=== PATIENT | female | born 1945 | race Caucasian/White ===

== ENCOUNTER 2017-03-12 09:41 | Day surgery (SDC) | payer MEDICARE, OTHER ==
[~2017-03-12] VITALS: Ht 160 cm; Wt 57.9 kg
[2017-03-12] VITALS (8 sets, daily range): BP systolic 153–205; BP diastolic 68–79; PULSE 64–76; RESP 16–22; TEMP 97.2–98.1; O2SAT 94–99; Ht 160 cm; Wt 57.9 kg
[~2017-03-12 09:41] MED LIST: AMLO5TAB2 PO; ASPI-557 PO; ATOR40TA64 PO; CHRO1000 PO; FLAX340P PO; LOSA100T44 PO; MULT-933 PO; OMEP40CA52 PO; VITA100049 PO; [UNRECOGNIZED DRUG - CODE] PO; [UNRECOGNIZED DRUG - CODE] PO
--- OUTSIDE RECORDS SUMMARY | 2017-03-12 09:45 | XMS REPORT | Continuity of Care Document ---
Author Author [facility] Organization [facility] Address Unknown Phone Unavailable Allergies Medications Problems Procedures Results Encounters ACCT No. Visit Date/Time Discharge Status Pt. Type Provider Facility Loc./Unit Complaint [id number] 11/25/2013 12:28:00 2013 12:28:00 DIS Outpatient Leonid SINGH, Kodi Le [facility]
--- NOTE | 2017-03-12 11:00 | NUR ---
CARDIOLOGY DURING ADMISSION, PT REPORTS SHE SEES DR ROMANO/CARDIOLOGY ANNUALLY FOR HX OF ANGINA. PT REPORTS NEGATIVE HEART CATH 2 YEARS AGO, AND DENIES ANY ANGINA SINCE THE EXAM. REPORTS HAD NUCLEAR STRESS TEST 01/[address] ROMANO LAST WEEK, 02/2017 FOR EXAM. PT REPORTS EXAM FINDINGS NEGATIVE. Agnieszka ANTHONY CRNA NOTIFIED, AND PER GABRIELLE, CONTACTED DR ROMANO'S OFFICE AND REQUEST COPIES OF EXAM FINDINGS.
--- NOTE | 2017-03-12 11:40 | NUR ---
STATUS Agnieszka ANTHONY [employer] SPEAKS WITH PT AND REVIEWS CARDIOLOGY RESULTS FROM DR. ROMANO'S OFFICE. PER Agnieszka ANTHONY CRNA, OK TO PROCEED WITH ADMISSION AND SURGERY. ALL QUESTIONS ANSWERED AND PT VERBALIZED DESIRE TO PROCEED.
[2017-03-12] MEDS: PHENYLEPHRINE 2.5% EYE DROPS 5ml RIGHT EYE SCH ×3 (11:42→11:58)
[2017-03-12] MEDS: CYCLOPENTOLATE 2% EYE DROPS 2ml RIGHT EYE SCH ×3 (11:42→11:58)
[2017-03-12] MEDS: NEPAFENAC 0.1% EYE DROPS 3ml RIGHT EYE SCH ×3 (11:42→11:59)
[2017-03-12] MEDS: TROPICAMIDE 1% EYE DROPS 3ml RIGHT EYE SCH ×3 (11:42→11:59)
[2017-03-12] MEDS: PROPARACAINE 0.5% EYE DROPS 15ml RIGHT EYE SCH ×3 (11:42→11:59)
[2017-03-12] MEDS: MOXIFLOXACIN 0.5% EYE DROPS 3ml RIGHT EYE SCH ×3 (11:42→11:58)
--- NOTE | 2017-03-12 11:57 | ANESPREOP ---
Anesthesia Record Date and Time DATE: 03/12/17 TIME: 11:55 Pre-Op Diagnosis cataract right eye Proposed Surgical Procedure PE W IOL OD NPO since: 0700 Allergies: Coded Allergies: Latex, Natural Rubber (Verified Allergy, Mild, RASH, 03/12/17) PT REPORTS HAD A SERUM TEST TO CONFIRM WELL Sulfa (Sulfonamide Antibiotics) (Verified Adverse Reaction, Unknown, SLEP FOR SEVERAL DAYS, 03/11/17) GIVEN CHILD- MOTHER TOLD PATIENT SHE SLEPT FOR SEVERAL DAYS ether (Verified Adverse Reaction, Unknown, SLEPT FOR SEVERAL DAYS, 03/11/17 ) PATIENT STATES CHILD AND THAT THEY ALSO GAVE HER SULFA - SHE WS TOLD SHE SLEP FOR SEVERAL DAYS Ht/Wt/BMI Height: 5 ' 3.00 " Weight: 57.900 kg BMI: 22.6 kg/m2 Vital Signs Date Time Temp Pulse Resp B/P Pulse Ox O2 Delivery O2 Flow Rate FiO2 03/12/17 10:45 98.1 67 16 205/79 99 Room Air Medications Inpatient Medications Current Medications Medications (Trade) Dose Ordered Sig/Willy Start Time Stop Time Status Last Admin Dose Admin Cyclopentolate HCl (Cyclogyl 2%) 1 drop Q5M 03/12/17 16:00 03/12/17 16:11 03/12/17 11:50 1 DROP Tropicamide (Mydriacyl 1% Eye Drops) 1 drop Q5M 03/12/17 16:00 03/12/17 16:11 03/12/17 11:50 1 DROP Proparacaine HCl (Alcaine 0.5% Eye Drops) 1 drop Q5M 03/12/17 16:00 03/12/17 16:11 03/12/17 11:50 1 DROP Phenylephrine HCl (Doyle-Synephrine 2.5% Eye Drops) 1 drop Q5M 03/12/17 16:00 03/12/17 16:11 03/12/17 11:50 1 DROP Moxifloxacin HCl (Vigamox) 1 drop Q5M 03/12/17 16:00 03/12/17 16:11 03/12/17 11:50 1 DROP Nepafenac (Nevanac 0.1% Eye Drops) 1 drop Q5M 03/12/17 16:00 03/12/17 16:11 03/12/17 11:50 1 DROP Amlodipine Besylate (Amlodipine Besylate) 5 Mg Tablet, 1 TAB PO DAILY, (Reported ) Last Taken: on 03/11/17 Ascorbic Acid (Vitamin C) 1,000 Mg Tab.chew, 2 TAB PO DAILY, (Reported) Last Taken: on 03/11/17 Aspirin (Aspir 81) 81 Mg Tablet.dr, 1 TAB PO DAILY, (Reported) Last Taken: on 03/10/17 Atorvastatin Calcium (Atorvastatin Calcium) 40 Mg Tablet, 1 TAB PO HS, (Reported) Last Taken: on 03/11/17 Calcium Phosphate Trib/Vit D3 (Calcium + Vitamin D3 Gummies) 1 Each Tab.chew, 2 TAB PO DAILY, (Reported) Last Taken: on 03/11/17 Chromium Picolinate (Chromium Picolinate) 1,000 Mcg Tablet, 1 TAB PO DAILY, (Reported) Last Taken: on 03/09/17 Flaxseed (Flaxseed) 340 Gm Powder, 3 TBS PO DAILY, (Reported) Last Taken: on 03/09/17 Losartan Potassium (Losartan Potassium) 100 Mg Tablet, 1 TAB PO DAILY, (Reported) Last Taken: on 03/12/17 0515 Multivitamin (Multi-Day Vitamins) 1 Each Tablet , 2 TAB PO DAILY, (Reported) Last Taken: on 03/11/17 Omeprazole (Omeprazole) 40 Mg Capsule.dr, 1 CAP PO DAILY, (Reported) Last Taken: on 03/12/17 0515 Vitamin E Mixed (Vitamin E) 1,000 Unit Capsule , 1 CAP PO DAILY, (Reported) Last Taken: on 03/09/17 Currently on Beta Darwin: No Medical/Surgical History Anesthesia PMH: Reports: *Angina (HX OF, LAST EPISODE 2 YEARS AGO-SEE NOTES), * Hypertension, Cancer (R BREAST,SKIN CA), Cardiac Arrythmia, Reflux, Denies: * Diabetes, Anesthesia Reactions (NO AIRWAY ISSUES-ALLERGY TO EITHER-N&V), Arthritis, Clotting Problems, Glaucoma, Malignant Hyperthermia, Renal Disease, Thyroid Disease Smoking Status: Never smoker Has pt. smoked today?: No Use Chewing Tobacco?: No Second Hand Exposure: No Substance Use Type: does not use Alcohol Intake: none HX of Last Menstrual Period: 1985 Past Surgical History Orthopedic Surgeries: Yes - L KNEE SCOPE Abdominal Surgeries: Genitourinary Surgeries: Cardiac Surgeries: Yes - HEART CATH SPRING 2014 Endocrine Surgeries: Reproductive Surgeries: Yes - HYSTERECTOMY, BSO Neurological Surgeries: Ear Surgeries: Nose Surgeries: Throat Surgeries: Other Surgeries: Yes - BILAT MASTECTOMY,COLONOSCOPY Anesthesia Adverse Reactions: FOUND none Hx of Motion Sickness: No Pertinent Findings EKG Rhythm: Sinus Rhythm, Bundle Branch Block Physical Exam Respiratory: Lungs clear Cardiovascular: FOUND Regular rate, rhythm, FOUND No murmur Airway Assessment Mallampati Score: I TMD: 3 Fingerbreadths Neck Extension: Good Teeth: Chipped Teeth/Crowns Overall Assessment: No Airway Concerns ASA: 3 Plan Anesthesia Plan: MAC Discussion Discussed risks/options/alternatives of anesthesia and questions answered. Patient consents. Nursing pain assessment noted. Attestation Statement Prior to the delivery of any anesthetic medication, I examined the patient, developed the plan, obtained the patient's consent and discussed the risk and benefits of the procedure with the patient/guardian. RAFAELA ANTHONY CRNA Mar 12, 2017 11:57
[2017-03-12] MEDS: LABETALOL 100mg/20ml INJECTION IV PRN ×3 (12:04→12:19)
--- NOTE | 2017-03-12 12:28 | NUR ---
MEDICATION PER Nehemias SAUNDERS CRNA, WILL NOT ADMINISTER ADDITIONAL LABETALOL IV AT THIS TIME. BP 167/71, HR 64.
--- NOTE | 2017-03-12 12:40 | NUR ---
BELONGINGS PT BELONGINGS, INCLUDING GLASSES, TO FRIEND NALDO.
[2017-03-12] MEDS ORDERED: MIDAZOLAM 2mg/2ml INJECTION ONE (12:56)
[2017-03-12] MEDS ORDERED: SALINE FLUSH 10ml SYRINGE ONE (12:56)
--- NOTE | 2017-03-12 13:51 | ANESPO ---
Post-Op Note Date 03/12/17 Time: 13:50 Status Pt Participated in Evaluation: Pt participated in person Vital Signs Date Time Temp Pulse Resp B/P Pulse Ox O2 Delivery O2 Flow Rate FiO2 03/12/17 12:25 65 16 167/71 99 Room Air 03/12/17 10:45 98.1 Respiratory Function: Airway patent, Regular respirations Cardiovascular Function: Regular pulse Mental Status: Alert/oriented Pain Level Intensity: 0 Hydration: Taking po fluids Complications during Recovery None apparent Follow-Up Instructions Instructions Per Surgeon SOFIA SAUNDERS CRNA Mar 12, 2017 13:50
[2017-03-12] MEDS ORDERED: LIDOCAINE 1% (10mg/ml) 2ml SDV INJ ONE (16:00)
[2017-03-12] MEDS ORDERED: TETRACAINE 0.5% EYE DROPS 4ml BOTTLE RIGHT EYE ONE (16:00)
[2017-03-12] MEDS ORDERED: TETRACAINE 0.5% EYE DROPS 4ml BOTTLE OP ONE (16:41)
[2017-03-12] MEDS ORDERED: BRIMONIDINE 0.2% EYE DROPS 5ml BOTH EYES ONE (16:41)
[2017-03-12] MEDS ORDERED: NS FOR INJ. 20 ML VIAL INJ ONE (16:41)
[2017-03-12] MEDS ORDERED: LIDOCAINE 1% (10mg/ml) 30ml SDV ID ONE (16:41)
[2017-03-12] MEDS ORDERED: VANCOMYCIN 500 MG INJECTION IV ONE (16:41)
--- NOTE | 2017-03-13 11:25 | OPNOTEF ---
DATE OF PROCEDURE 03/12/2017 PREOPERATIVE DIAGNOSIS Cataract, right eye. POSTOPERATIVE DIAGNOSIS Cataract, right eye. PROCEDURE Phacoemulsification with implantation of 19.0 diopter intraocular lens model SA60AT, right eye. ANESTHESIA Topical block monitored by Claudio Otto CRNA. SURGEON Kostas Erickson MD PROCEDURE IN DETAIL The patient came to the [facility] and was escorted to the preanesthesia area where the appropriate monitoring, eyedrops, and topical anesthetic were administered. The patient was then taken into the operating room and the eye was prepped and draped in the standard sterile manner for ophthalmic surgery. A lid speculum was placed between the lids and the eye was irrigated with 5% Povidine iodine solution, followed by copious irrigation with sterile balanced salt solution after three minutes. The eye surgery began with the initial side port incision through the peripheral clear cornea. Lidocaine preservative free 1% was injected into the anterior chamber. Viscoelastic was exchanged for aqueous. A clear cornea incision was made just anterior to the vascular arcade with a steel keratome blade. A continuous curvilinear anterior capsulorrhexis was performed, followed by hydrodissection and hydrodelineation of the cataract. The phacoemulsification tip was then inserted through the incision into the anterior chamber, and the nucleus of the cataract was emulsified. The remaining cortical material was then aspirated and the posterior capsule was cleaned and polished. A posterior chamber intraocular lens was then implanted into the capsular bag with viscoelastic support. The viscoelastic was then removed from the eye by aspiration. The clear cornea incision was inspected to ensure a water tight seal. The lid speculum was removed. Vigamox, Nevanac, and Brimonidine eyedrops were instilled onto the eye and an eye shield was taped over the eye. The patient was dismissed to the responsible libertarian with postoperative instructions and a planned follow-up visit. RYAN
== END 2017-03-12 14:55 | disposition home or self-care (01) ==
LOC: NSC 09:41
PROVIDERS: ATTEND Ophthalmology
DX: H25.813 Combined forms of age-related cataract, bilateral (principal); I10 Essential (primary) hypertension; E78.5 Hyperlipidemia, unspecified; K21.9 Gastro-esophageal reflux disease without esophagitis; E07.9 Disorder of thyroid, unspecified; Z79.82 Long term (current) use of aspirin; Z79.899 Other long term (current) drug therapy
CPT/HCPCS: 66984; A9270; C1780; J2250; J3370

== ENCOUNTER 2017-04-09 10:10 | Day surgery (SDC) | payer MEDICARE, OTHER ==
[~2017-04-09] VITALS: Ht 160 cm; Wt 57.6 kg
--- OUTSIDE RECORDS SUMMARY | 2017-04-09 10:16 | XMS REPORT | Continuity of Care Document ---
Author Author [facility] Organization [facility] Address Unknown Phone Unavailable Allergies Medications Problems Procedures Results Encounters ACCT No. Visit Date/Time Discharge Status Pt. Type Provider Facility Loc./Unit Complaint [id number] 11/25/2013 12:28:00 2013 12:28:00 DIS Outpatient Leonid SINGH, Kodi Le [facility]
--- OUTSIDE RECORDS SUMMARY | 2017-04-09 10:16 | XMS REPORT | Continuity of Care Document ---
Author Author [facility] Organization [facility] Address Unknown Phone Unavailable Support Name Relationship Address Phone PHILIPPE TAI Caregiver [address] [place] [address] [place] [address] Unavailable BIANCA JJ MD Caregiver Unknown Unavailable DAYSI FRANCISCO Next Of Kin Unknown [phone] Insurance Providers Guarantor Sunita Lubin Address [address] [place] [address] Email DENIED 17 Payer [employer] Medicare Supplement Policy Number [id number] Subscriber's Name Sunita Lubin Relationship 18 Self Group Number [id number] Payer Medicare Policy Number [id number] Subscriber's Name TigistSunita Woodruff Relationship 18 Self Advance Directives Directive Response Recorded Date/Time Ordered Resuscitation Status Full Code, unverified 03/11/17 2:44pm Resuscitation Documents on File Y BROUGHT TODAY 03/12/17 11:44am DPOA for Healthcare Only Yes 03/12/17 11:44am Living Will No 03/12/17 11:44am Problems No problem information available. Medications Current Home Medications Medication Dose Units Route Directions Days Qty Instructions Start Date Amlodipine Besylate 5 Mg Tablet 1 Tab Oral Daily 90 03/11/17 Ascorbic Acid (Vitamin C) 1,000 Mg Tab.chew 2 Tab Oral Daily Aspirin (Aspir 81) 81 Mg Tablet. 1 Tab Oral Daily 03/11/17 Atorvastatin Calcium 40 Mg Tablet 1 Tab Oral Bedtime 30 03/11/17 Calcium Phosphate Trib/Vit D3 (Calcium + Vitamin D3 Gummies) 1 Each Tab.chew 2 Tab Oral Daily 03/11/17 Chromium Picolinate 1,000 Mcg Tablet 1 Tab Oral Daily 03/11/17 Flaxseed 340 Gm Powder 3 Tbs Oral Daily 03/11/17 Losartan Potassium 100 Mg Tablet 1 Tab Oral Daily 90 03/11/17 Multivitamin (Multi-Day Vitamins) 1 Each Tablet 2 Tab Oral Daily 30 Tablet 03/11/17 Omeprazole 40 Mg Capsule. 1 Cap Oral Daily 30 03/11/17 Vitamin E Mixed (Vitamin E) 1,000 Unit Capsule 1 Cap Oral Daily 03/11/17 Social History Social History Problem Response Recorded Date/Time Onset Date Status Chewing Tobacco Status No 03/12/2017 11:30am Not Applicable Not Applicable Hx Substance Use No 03/12/2017 11:30am Not Applicable Not Applicable Hx Alcohol Use No 03/12/2017 11:30am Not Applicable Not Applicable Has the pt used tobacco in the last 12 months No 03/12/2017 11:30am Not Applicable Not Applicable Query Response Start Date Stop Date Smoking Status Never smoker Hospital Discharge Instructions No hospital discharge instructions. Plan of Care Discharge Date 03/12/17 2:55pm Prescriptions See Medication Section Functional Status Query Response Date Recorded Ability to complete ADL's impeded by No change March 12, 2017 11:44am Allergies, Adverse Reactions, Alerts Allergen Type Severity Reaction Status Last Updated Sulfa (Sulfonamide Antibiotics) Adverse Reaction Unknown SLEP FOR SEVERAL DAYS Active 03/11/17 Latex Allergy Mild RASH Active 03/12/17 General inhalation anesthetic Adverse Reaction Unknown SLEPT FOR SEVERAL DAYS Active 03/11/17 Immunizations Query Response on File Recorded Date/Time Hx Influenza Vaccination Y JUN 2016 03/12/17 11:30am Hx Pneumococcal Vaccination Y JUN 2016 03/12/17 11:30am Hx Influenza Vaccination Y JUN 2016 03/12/17 11:30am Vital Signs Acute Vital Signs Vital Response Date/Time Temperature (Fahrenheit) 97.2 deg F (96.8 - 99.1) 03/12/2017 2:15pm Temperature (Calculated Celsius) 36.86794 degrees C (36.0 - 37.3) 03/12/2017 2:15pm Temperature Source Temporal 03/12/2017 2:15pm Pulse Rate (adult) 68 bpm (60 - 100) 03/12/2017 2:15pm Respiratory Rate 21 breaths/min (10 - 20) 03/12/2017 2:15pm O2 Sat by Pulse Oximetry 98 % (90 - 100) 03/12/2017 2:15pm Oxygen Delivery Method Room Air 03/12/2017 2:15pm Blood Pressure 169/72 mm Hg 03/12/2017 2:15pm Blood Pressure Source Automatic Cuff 03/12/2017 2:15pm Height (Feet) 5 feet 03/12/2017 10:45am Height (Inches) 3.00 inches 03/12/2017 10:45am Weight (Kilograms) 57.900 kg 03/12/2017 10:45am Body Mass Index (BMI) 22.6 03/12/2017 10:45am Results No known relevant diagnostic tests, laboratory data and/or discharge summary. Procedures Procedure Status Date Provider(s) Cataract extraction, right Completed 03/12/17 BIANCA JJ MD Encounters Encounter Location Arrival/Admit Date Discharge/Depart Date Attending Provider Departed [facility] 03/12/17 9:41am 03/12/17 2: 55pm BIANCA JJ MD
[2017-04-09] MEDS: MOXIFLOXACIN 0.5% EYE DROPS 3ml LEFT EYE SCH ×3 (11:34→11:46)
[2017-04-09] MEDS: CYCLOPENTOLATE 2% EYE DROPS 2ml LEFT EYE SCH ×3 (11:34→11:47)
[2017-04-09] MEDS: NEPAFENAC 0.1% EYE DROPS 3ml LEFT EYE SCH ×3 (11:34→11:47)
[2017-04-09] MEDS: TROPICAMIDE 1% EYE DROPS 3ml LEFT EYE SCH ×3 (11:35→11:47)
[2017-04-09] MEDS: PHENYLEPHRINE 2.5% EYE DROPS 5ml LEFT EYE SCH ×3 (11:35→11:47)
[2017-04-09] MEDS: PROPARACAINE 0.5% EYE DROPS 15ml LEFT EYE SCH ×3 (11:35→11:47)
[2017-04-09 11:57] VITALS: Ht 160 cm; Wt 57.6 kg
--- NOTE | 2017-04-09 12:08 | ANESPREOP ---
Anesthesia Record Date and Time DATE: 04/09/17 TIME: 12:03 Pre-Op Diagnosis lt. cat. Proposed Surgical Procedure CATARACT LEFT Allergies: Coded Allergies: Latex, Natural Rubber (Verified Allergy, Mild, RASH, 03/12/17) PT REPORTS HAD A SERUM TEST TO CONFIRM WELL Sulfa (Sulfonamide Antibiotics) (Verified Adverse Reaction, Unknown, SLEP FOR SEVERAL DAYS, 03/11/17) GIVEN CHILD- MOTHER TOLD PATIENT SHE SLEPT FOR SEVERAL DAYS ether (Verified Adverse Reaction, Unknown, SLEPT FOR SEVERAL DAYS, 03/11/17 ) PATIENT STATES CHILD AND THAT THEY ALSO GAVE HER SULFA - SHE WS TOLD SHE SLEP FOR SEVERAL DAYS Ht/Wt/BMI Height: 5 ' 3.00 " Weight: 57.600 kg BMI: 22.5 kg/m2 Medications Inpatient Medications Current Medications Medications (Trade) Dose Ordered Sig/Willy Start Time Stop Time Status Last Admin Dose Admin Cyclopentolate HCl (Cyclogyl 2%) 1 drop Q5M 04/09/17 17:00 04/09/17 17:11 04/09/17 11:47 1 DROP Tropicamide (Mydriacyl 1% Eye Drops) 1 drop Q5M 04/09/17 17:00 04/09/17 17:11 04/09/17 11:47 1 DROP Proparacaine HCl (Alcaine 0.5% Eye Drops) 1 drop Q5M 04/09/17 17:00 04/09/17 17:11 04/09/17 11:47 1 DROP Phenylephrine HCl (Doyle-Synephrine 2.5% Eye Drops) 1 drop Q5M 04/09/17 17:00 04/09/17 17:11 04/09/17 11:47 1 DROP Moxifloxacin HCl (Vigamox) 1 drop Q5M 04/09/17 17:00 04/09/17 17:11 04/09/17 11:46 1 DROP Nepafenac (Nevanac 0.1% Eye Drops) 1 drop Q5M 04/09/17 11:45 04/09/17 11:56 UNV 04/09/17 11:34 1 DROP Amlodipine Besylate (Amlodipine Besylate) 5 Mg Tablet, 1 TAB PO DAILY, (Reported ) Last Taken: on 04/09/17 0530 Ascorbic Acid (Vitamin C) 1,000 Mg Tab.chew, 2 TAB PO DAILY, (Reported) Last Taken: on 04/08/17 Aspirin (Aspir 81) 81 Mg Tablet.dr, 1 TAB PO DAILY, (Reported) Last Taken: on 04/08/17 Atorvastatin Calcium (Atorvastatin Calcium) 40 Mg Tablet, 1 TAB PO HS, (Reported) Last Taken: on 04/08/17 Calcium Phosphate Trib/Vit D3 (Calcium + Vitamin D3 Gummies) 1 Each Tab.chew, 2 TAB PO DAILY, (Reported) Last Taken: on 04/08/17 Chromium Picolinate (Chromium Picolinate) 1,000 Mcg Tablet, 1 TAB PO DAILY, (Reported) Last Taken: on 04/08/17 Flaxseed (Flaxseed) 340 Gm Powder, 3 TBS PO DAILY, (Reported) Last Taken: on 04/07/17 Losartan Potassium (Losartan Potassium) 100 Mg Tablet, 1 TAB PO DAILY, (Reported) Last Taken: on 04/08/17 Multivitamin (Multi-Day Vitamins) 1 Each Tablet, 2 TAB PO DAILY, (Reported) Last Taken: on 04/08/17 Omeprazole (Omeprazole) 40 Mg Capsule.dr, 1 CAP PO DAILY, (Reported) Last Taken: on 04/08/17 Vitamin E Mixed (Vitamin E) 1,000 Unit Capsule, 1 CAP PO DAILY, (Reported) Last Taken: on 04/08/17 Currently on Beta Darwin: No Medical/Surgical History Anesthesia PMH: Reports: *Angina (HX OF, LAST EPISODE 2 YEARS AGO-SEE NOTES), * Hypertension, Cancer (R BREAST,SKIN CA), Cardiac Arrythmia, Reflux, Denies: * Diabetes, Anesthesia Reactions (NO AIRWAY ISSUES-ALLERGY TO EITHER-N&V), Arthritis, Clotting Problems, Glaucoma, Malignant Hyperthermia, Renal Disease, Sleep Apnea, Thyroid Disease Smoking Status: Never smoker Has pt. smoked today?: No Use Chewing Tobacco?: No Second Hand Exposure: No Substance Use Type: does not use Alcohol Intake: none HX of Last Menstrual Period: HYST Past Surgical History Orthopedic Surgeries: Yes - L KNEE SCOPE Abdominal Surgeries: Genitourinary Surgeries: Cardiac Surgeries: Yes - HEART CATH SPRING 2014 Endocrine Surgeries: Reproductive Surgeries: Yes - HYSTERECTOMY, BSO Neurological Surgeries: Ear Surgeries: Nose Surgeries: Throat Surgeries: Other Surgeries: Yes - BILAT MASTECTOMY,COLONOSCOPY,CATARACTS Anesthesia Adverse Reactions: FOUND none Family Hx of Anesthesia Advers: none Hx of Motion Sickness: No Pertinent Findings EKG Rhythm: Sinus Rhythm, Bundle Branch Block Physical Exam Respiratory: Bilat breath sounds equal, Lungs clear Cardiovascular: FOUND Irregularly irregular, FOUND No murmur Airway Assessment Mallampati Score: II TMD: 3 Fingerbreadths Neck Extension: Good Overall Assessment: No Airway Concerns ASA: 2 Plan Anesthesia Plan: MAC Discussion Discussed risks/options/alternatives of anesthesia and questions answered. Patient consents. Nursing pain assessment noted. Attestation Statement Prior to the delivery of any anesthetic medication, I examined the patient, developed the plan, obtained the patient's consent and discussed the risk and benefits of the procedure with the patient/guardian. GINA WANG CRNA April 09, 2017 12:07
[2017-04-09] MEDS ORDERED: MIDAZOLAM 2mg/2ml INJECTION ONE (12:50)
[2017-04-09] MEDS ORDERED: FENTANYL 100mcg/2ml INJECTION ONE (12:51)
[2017-04-09] MEDS ORDERED: SALINE FLUSH 10ml SYRINGE ONE (12:55)
[2017-04-09 13:31] VITALS: BP 141/63; PULSE 60; RESP 14; TEMP 97.5; O2SAT 97
--- NOTE | 2017-04-09 13:38 | ANESPO ---
Post-Op Note Date 04/09/17 Time: 13:37 Status Pt Participated in Evaluation: Pt participated in person Vital Signs Date Time Temp Pulse Resp B/P Pulse Ox O2 Delivery O2 Flow Rate FiO2 04/09/17 13:31 97.5 60 14 141/63 97 Room Air Respiratory Function: Airway patent, Regular respirations Cardiovascular Function: Regular pulse Mental Status: Alert/oriented Pain Level Intensity: 0 Hydration: Taking po fluids Complications during Recovery None apparent Post-Anesthesia Notes pt. bora. well Follow-Up Instructions Instructions Per Surgeon Additional Information none GINA WANG CRNA April 09, 2017 13:38
[2017-04-09 13:45] VITALS: BP 146/67; PULSE 70; RESP 14; O2SAT 97
[2017-04-09 14:00] VITALS: BP 166/67; PULSE 64; RESP 14; O2SAT 97
[2017-04-09] MEDS ORDERED: TETRACAINE 0.5% EYE DROPS 4ml BOTTLE OP ONE (15:20)
[2017-04-09] MEDS ORDERED: BRIMONIDINE 0.2% EYE DROPS 5ml BOTH EYES ONE (15:20)
[2017-04-09] MEDS ORDERED: NS FOR INJ. 20 ML VIAL INJ ONE (15:20)
[2017-04-09] MEDS ORDERED: VANCOMYCIN 500 MG INJECTION IV ONE (15:20)
[2017-04-09] MEDS ORDERED: LIDOCAINE 1% (10mg/ml) 30ml SDV IJ ONE (15:20)
[2017-04-09] MEDS ORDERED: LIDOCAINE 1% (10mg/ml) 2ml SDV INJ ONE (17:00)
--- NOTE | 2017-04-11 14:06 | OPNOTEF ---
DATE OF PROCEDURE 04/09/2017 PREOPERATIVE DIAGNOSIS Cataract, left eye. POSTOPERATIVE DIAGNOSIS Cataract, left eye. PROCEDURE Phacoemulsification with implantation of 19.0 diopter intraocular lens model SA60AT, left eye. ANESTHESIA Topical block monitored by Filemon Sanders CRNA. SURGEON Kostas Erickson MD PROCEDURE IN DETAIL The patient came to the [facility] and was escorted to the preanesthesia area where the appropriate monitoring, eyedrops, and topical anesthetic were administered. The patient was then taken into the operating room and the eye was prepped and draped in the standard sterile manner for ophthalmic surgery. A lid speculum was placed between the lids and the eye was irrigated with 5% Povidine iodine solution, followed by copious irrigation with sterile balanced salt solution after three minutes. The eye surgery began with the initial side port incision through the peripheral clear cornea. Lidocaine preservative free 1% was injected into the anterior chamber. Viscoelastic was exchanged for aqueous. A clear cornea incision was made just anterior to the vascular arcade with a steel keratome blade. A continuous curvilinear anterior capsulorrhexis was performed, followed by hydrodissection and hydrodelineation of the cataract. The phacoemulsification tip was then inserted through the incision into the anterior chamber, and the nucleus of the cataract was emulsified. The remaining cortical material was then aspirated and the posterior capsule was cleaned and polished. A posterior chamber intraocular lens was then implanted into the capsular bag with viscoelastic support. The viscoelastic was then removed from the eye by aspiration. The clear cornea incision was inspected to ensure a water tight seal. The lid speculum was removed. Vigamox, Nevanac, and Brimonidine eyedrops were instilled onto the eye and an eye shield was taped over the eye. The patient was dismissed to the responsible alliance party with postoperative instructions and a planned follow-up visit. RYAN
== END 2017-04-09 14:10 | disposition home or self-care (01) ==
LOC: NSC 10:10
PROVIDERS: ATTEND Ophthalmology
DX: H25.812 Combined forms of age-related cataract, left eye (principal); I10 Essential (primary) hypertension; E78.00 Pure hypercholesterolemia, unspecified; Z79.811 Long term (current) use of aromatase inhibitors; Z79.82 Long term (current) use of aspirin; Z79.899 Other long term (current) drug therapy; Z88.2 Allergy status to sulfonamides; Z91.040 Latex allergy status; Z85.3 Personal history of malignant neoplasm of breast
CPT/HCPCS: 66984; A9270; C1780; J2250; J3010; J3370